=== PATIENT | male | born 1960 | race Caucasian/White ===

== ENCOUNTER 2019-09-27 11:45 | Emergency (ER) | payer OTHER, BC ==
[~2019-09-27] VITALS: Ht 175.3 cm; Wt 84.4 kg
[2019-09-27 13:20] VITALS: BP 144/84
== END 2019-09-27 13:20 | disposition home or self-care (01) ==
LOC: ER 11:45
DX: S61.412A Laceration without foreign body of left hand, initial encounter (principal); I48.91 Unspecified atrial fibrillation; Z88.1 Allergy status to other antibiotic agents; Z79.01 Long term (current) use of anticoagulants; Z95.0 Presence of cardiac pacemaker; W23.0XXA Caught, crushed, jammed, or pinched between moving objects, initial encounter; Y93.89 Activity, other specified; Y92.89 Other specified places as the place of occurrence of the external cause; Y99.9 Unspecified external cause status